=== PATIENT | female | born 1995 | race African-American/Black ===

== ENCOUNTER 2019-03-23 15:23 | Emergency (ER) | payer MEDICAID ==
[~2019-03-23] VITALS: Ht 162.6 cm; Wt 59.0 kg
[~2019-03-23 15:23] MED LIST: FERR-43 PO; HAL5 GT; HALO0.5T2 GT; PREN-88 PO
[2019-03-23] MEDS ORDERED: HALOPERIDOL LACTATE 5MG/ML VIAL IM STA (15:38)
[2019-03-23] MEDS ORDERED: LORAZEPAM 2MG/ML CPJ IM STA (15:38)
[2019-03-23 16:06] LABS: BASOPHILS % 0.2 % (0.0-2.0); EOSINOPHILS % 0.2 % (0.0-5.0); HEMATOCRIT. 26.7 % (36.0-48.0); HEMOGLOBIN. 8.7 g/dL (12.0-16.0); LYMPHOCYTES % 16.4 % (20.0-50.0); MEAN CORPUSCULAR VOLUME 79.4 fL (81.0-99.0); MEAN PLATELET VOLUME 7.7 fl (7.4-10.4); MONOCYTES % 7.6 % (2.0-8.0); NEUTROPHILS % 75.6 % (40.0-76.0); PLATELET 339 x1000/uL (130-400); RED BLOOD CELL COUNT 3.36 mill/uL (4.2-5.4); RED CELL DISTRIBUTION WIDTH 14.3 % (11.6-14.6)
[2019-03-23 16:07] LABS: CHLORIDE 104 mEq/L (98-107)
[2019-03-23 16:12] LABS: ETHANOL BLOOD < 10 mg/dL
[2019-03-23 16:13] LABS: HCG SCREEN NEGATIVE
[2019-03-23] MEDS ORDERED: LORAZEPAM 2MG/ML CPJ IM ONE (16:30)
[2019-03-23 17:20] LABS: CLARITY URINE TURBID (CLEAR); COLOR URINE DARK YELLOW (YELLOW); KETONES URINE 1+ (NEGATIVE); LEUKOCYTE ESTERASE URINE 1+ (NEGATIVE); NITRITE URINE NEGATIVE (NEGATIVE); OCCULT BLOOD URINE TRACE (NEGATIVE); PROTEIN URINE 2+ (NEGATIVE); SPECIFIC GRAVITY URINE 1.038 (1.005-1.030)
[2019-03-23 17:30] LABS: *BARBITURATES SCREEN URINE NEGATIVE (NEGATIVE); *BENZODIAZEPINES SCREEN URINE NEGATIVE (NEGATIVE)
[2019-03-23 17:31] LABS: METHADONE URINE SCREEN NEGATIVE (NEGATIVE); OPIATES URINE SCREEN NEGATIVE (NEGATIVE); PHENCYCLIDINE URINE SCREEN NEGATIVE (NEGATIVE)
[2019-03-23 17:34] LABS: *AMPHETAMINES SCREEN URINE PRESUMTIVE POSITIVE (NEGATIVE); *COCAINE SCREEN URINE PRESUMTIVE POSITIVE (NEGATIVE)
[2019-03-23 17:35] LABS: CANNABINOID URINE SCREEN PRESUMTIVE POSITIVE (NEGATIVE)
[2019-03-23] MEDS ORDERED: AMOXICILLIN 500 MG CAPSULE PO ONE (18:30)
[2019-03-24 06:50] VITALS: BP 134/78
== END 2019-03-24 09:37 | disposition home or self-care (01) ==
LOC: ER 15:23
DX: T43.621A Poisoning by amphetamines, accidental (unintentional), initial encounter (principal); T40.5X1A Poisoning by cocaine, accidental (unintentional), initial encounter; N30.00 Acute cystitis without hematuria; F20.9 Schizophrenia, unspecified; Y92.488 Other paved roadways as the place of occurrence of the external cause
CPT/HCPCS: 36415; 80053; 80305; 80307; 80320; 80329; 81003; 82962; 84703; 85025; 96372; 99283; J1630; J2060; Z7610; G0480